=== PATIENT | male | born 1995 | race Caucasian/White ===

== ENCOUNTER 2016-06-22 10:25 | Emergency (ER) | payer BC ==
[~2016-06-22] VITALS: Ht 180.3 cm; Wt 79.5 kg
[2016-06-22 10:28] VITALS: BP 132/86; PULSE 86; TEMP 99.2
[2016-06-22] MEDS ORDERED: ZYRTEC 10MG10 MG PO (10:32)
[2016-06-22] MEDS ORDERED: CEPHALEXIN500 M1 PO (10:51)
== END 2016-06-22 11:02 | disposition home or self-care (01) ==
LOC: COL.ER 10:25
DX: S91.312A Laceration without foreign body, left foot, initial encounter (principal); W22.03XA Walked into furniture, initial encounter

== ENCOUNTER 2017-03-20 19:46 | Emergency (ER) | payer BC ==
[~2017-03-20] VITALS: Ht 182.9 cm; Wt 86.4 kg
[~2017-03-20 19:46] MED LIST: CEPHALEXIN500 M1 PO; ZYRTEC 10MG10 MG PO
[2017-03-20 19:50] VITALS: TEMP 99.2
[2017-03-20 20:32] LABS: COLLECTION METHOD CLEAN CATCH
[2017-03-20 20:36] LABS: BASO % 0.4 % (0.0-2.0); EOS # 0.1 (0.0-0.7); EOS % 1.3 % (0-4.0); GRAN # 7.8 (1.4-6.5); GRAN % 73.1 % (42.2-75.2); HEMATOCRIT 50.5 % (42.0-52.0); HEMOGLOBIN 17.3 g/dl (13.5-18.0); LYMPH % 19.3 % (20.0-51.0); MEAN CELL VOLUME 92 fl (80.0-100.0); MEAN CORPUSCULAR HEMOGLOBIN 31 pg (27.0-31.0); MEAN CORPUSCULAR HGB CONC 34 g/dl (33.0-37.0); MONO # 0.6 (0.1-0.6); MONO % 5.4 % (1.7-9.3); PLATELET COUNT 248 K/mm3 (130-400); RED BLOOD COUNT 5.52 M/mm3 (4.20-5.60); WHITE BLOOD COUNT 10.6 K/mm3 (4.8-10.8)
[2017-03-20 20:40] LABS: MUCOUS Present /lpf; PH 5 (5-8); SQUAMOUS EPITHELIAL None Seen /hpf; URINE APPEARANCE Clear; URINE BACTERIA None Seen /hpf; URINE BILIRUBIN Negative (NEGATIVE); URINE BLOOD Negative (NEGATIVE); URINE COLOR Yellow; URINE GLUCOSE Negative (NEGATIVE); URINE KETONE Negative (NEGATIVE); URINE LEUKOCYTE ESTERASE Negative (NEGATIVE); URINE PROTEIN(semi-quant) Negative (NEGATIVE); URINE RBC 0-2 /hpf; URINE UROBILINOGEN Negative (NEGATIVE); URINE WBC 0-2 /hpf
[2017-03-20 21:02] LABS: ADJUSTED CALCIUM 9.1 mg/dL (8.4-10.2); ALANINE AMINOTRANSFERASE 81 U/L (21-72); ALBUMIN 5.4 gm/dL (3.5-5.0); ALKALINE PHOSPHATASE 124 U/L (50-136); ANION GAP 11 mmol/L (7-16); BLOOD UREA NITROGEN 17 mg/dL (9-20); CALCIUM 10.2 mg/dL (8.4-10.2); CARBON DIOXIDE 28 mmol/L (22-30); CHLORIDE 101 mmol/L (98-107); GLUCOSE 102 mg/dL (74-106); LIPASE 43 U/L (23-300); POTASSIUM 4.2 mmol/L (3.4-5.0); SODIUM 140 mmol/L (137-145); TOTAL PROTEIN 8.3 gm/dL (6.4-8.2)
[2017-03-20 21:08] LABS: C-REACTIVE PROTEIN < 0.5 mg/dL (0.0-0.9)
[2017-03-20] MEDS ORDERED: NORCO 325 MG-51 TAB PO (21:52)
[2017-03-20] MEDS ORDERED: ZOFRAN 4MG T4 MG/TAB PO (21:52)
[2017-03-20] MEDS ORDERED: LORTABELIX PO (22:10)
[2017-03-20 22:14] VITALS: BP 146/99; PULSE 73
== END 2017-03-20 22:16 | disposition home or self-care (01) ==
LOC: COL.ER 19:46
PROVIDERS: Emergency Medicine
DX: I88.0 Nonspecific mesenteric lymphadenitis (principal); G43.909 Migraine, unspecified, not intractable, without status migrainosus
CPT/HCPCS: J2405; J7030; J7050; Q9967